=== PATIENT | female | born 1960 | race Caucasian/White ===

== ENCOUNTER 2016-12-03 08:19 | Day surgery (SDC) | payer OTHER ==
[~2016-12-03] VITALS: Ht 162.6 cm; Wt 59.7 kg
[~2016-12-03 08:19] MED LIST: CeFAZolin Inj 2 GM in IV Premix 1 EACH IV ONE; IBUP-1827 PO
[2016-12-03] MEDS ORDERED: fentaNYL-PF 50 mCg/mL 2 mL Inj ONE (08:20)
[2016-12-03] MEDS ORDERED: Propofol 10,000 mCg/mL 20 mL Inj ONE (08:20)
[2016-12-03 08:56] VITALS: BP 129/71; PULSE 79; RESP 16; O2SAT 99
[2016-12-03] MEDS: Lactated Ringer's 1,000 ML IV SCH ×2 (08:56→11:00)
--- NOTE | 2016-12-03 10:44 | PCM.HPANE ---
Patient Data Surgeon Admitting Provider: Attending Provider:Angelita Whelan DPM Primary Care Physician:Michelle Ochoa Other Provider:Aleyda Hale Anesthesia Reason for Visit Right Foot Metatarsal Deformity, Hammertoes Ht/WT & BMI Height (Feet): 5 Height (Inches): 4.00 Weight (Kilograms): 59.7 Body Mass Index 22.00 Allergies Coded Allergies: bacitracin (Verified Adverse Reaction, Unknown, 09/05/16) WELTS Past Anesthesia History Anesthesia History: Denies:: Abnormal Airway, Anesthesia Reactions, Difficult Intubation, Fam Anesthesia Reaction Diabetes History Hx Diabetes?: No MRSA MRSA: No Medications Hypertension Medication: No Home Meds Incl Beta Salvador: No Reported Medications Ibuprofen 600 Mg [id number] Mg PO QID PRN For Pain Ref 0 12/02/16 Discontinued Reported Medications [Muscle Relaxer] No Conflict CheckUnknown Dose PO BID PRN For Spasm 09/05/16 Ibuprofen 600 Mg [id number] Mg PO QID PRN For Pain Ref 0 09/05/16 oxyCODONE-Acetaminophen 5-325 mg 1 Each Tablet1-2 Tab PO Q6H PRN For Pain Ref 0 09/05/16 History History of ENT Problems?: No HEENT History: Denies:: Abnormal Airway Cataracts Difficult Intubation Dysphagia Glaucoma Hearing Problem Sinus Problem TMJ Hx of Heart Problems?: No Cardiovascular History: Denies:: AICD Abdominal Aortic Aneurism Atrial Fibrillation Cardiac Surgery Congestive Heart Failure Heart Murmur Hypertension Irregular Heartbeat Pacemaker Peripheral Vascular Rheumatic Fever Hx of Respiratory Problem?: No Respiratory History: Denies:: Asthma COPD Emphysema Oxygen Administration Pneumonia Tuberculosis Use of C-PAP Machine Hx Neurologic Problems?: No Neurological History: Denies:: Alzheimer's Disease CVA Dementia Dizziness Multiple Sclerosis Parkinson's Disease Seizures Hx of GI Problems?: No Gastrointestinal History: Denies:: Cirrhosis Diverticulitis Gastroesphageal Reflux Gastrointestinal Bleeding Heartburn Hepatitis Hiatal Hernia Liver Disease Rectal Bleeding Hx of Problems?: No Genitourinary History: Denies:: Kidney Stones Urinary Tract Infection Female Hx: Denies:: Currently Problems with Breasts? Skin History: Denies:: History Skin Disorders? Pressure Ulcers Hx Musculoskeletal Problems?: Yes Musculoskeletal History: Positive for:: Musculoskeletal Trauma (right foot current admission problem) Osteoarthritis Denies:: Back Injury Fibromyalgia Joint Replacement Myasthenia Gravis Hx of Psycho/Social Problems?: No Psycho Social History: Denies:: Anxiety Hx Depression Hx Surgeries?: Yes (multiple foot surgeries) Hx Any Other Health Problems?: Yes Other History: Denies:: Cancer Thyroid Disease History Blood Transfusions: Positive for:: Accept Blood Products? Denies:: Blood Transfusions Hx Diabetes: No Hx Alcohol Use: NoHx Substance Use: No Smoking Status: Never Smoker Stop/Bang S-Snoring: Do You Snore Loudly: No T-Tired: feel tired, fatigued: No O-Obsered: Observed not breath: No P-Blood Pressure: treated: No B- Body Mass Index > 35 kg/m2: No A- Age over 50: Yes N- Neck Large Circumference: No G- Gender Male: No ANGELINE Total Score: 1 Risk Assessment Category Category 1A: Patient has history of documented sleep apnea, and HAS NOT received any narcotic, sedative or anesthesia administration during this stay. Category 1B: Patient has history of documented sleep apnea, and HAS received any narcotic , sedative or anesthesia administration during this stay Category 2: Patient has SUSPECTED Obstructive Sleep Apnea, and HAS received any narcotic , sedative or anesthesia administration during this stay. Category 3: Patient has SUSPECTED Obstructive Sleep Apnea and HAS NOT received narcotic, sedative or anesthesia administration during this stay. Category 4: Outpatient in Procedural Areas with known sleep apnea or who screen positive for High Risk via the STOP/BANG questionnaire. Exam Exam Vital Signs Vital Signs Date Time Temp Pulse Resp B/P Pulse Ox O2 Delivery O2 Flow Rate FiO2 12/03/16 08:56 35.8 79 16 129/71 99 Room Air General Appearance: Alert, Oriented X3, Cooperative HEENT/AIRWAY: MP 2 Lungs: Clear to Auscultation Heart: Exam Unremarkable Meds/Labs/Diagnostics Admission Meds Current Medications Lactated Ringer's (Lr) 1,000 ml @ 120 mls/hr Q8H20M IV Last administered on t 08:56; Start 12/03/16 at 05:00; Stop 12/03/16 at 13:19 Plan Impression Patient chart reviewed, patient interviewed and anesthestic plan with risks, benefits, and alternatives discussed, and informed consent obtained. NPO Status: 12/02 at 2100 ASA Physical Status: ASA2 Mod Systemic Disease Anesthetic Plan: GA Bene/Risks/Altern/Consents: Yes HP Complete Prior to Induction: Yes Swapnil Chaudhry MD Dec 03, 2016 10:44
[2016-12-03] MEDS ORDERED: Lidocaine PF 1% 30 mL Inj INJ ONE (11:10)
[2016-12-03] MEDS ORDERED: Bupivacaine-MPF 0.5% 30 mL Inj INJ ONE (11:28)
[2016-12-03] MEDS ORDERED: Ondansetron 2 mg/mL 2 mL Inj IVPUSH PRN (11:40)
[2016-12-03] MEDS ORDERED: Phenylephrine 10,000 mCg/mL Inj IVPUSH PRN (11:40)
[2016-12-03] MEDS ORDERED: Dexamethasone 4 mg/mL Inj IVPUSH PRN (11:40)
[2016-12-03] MEDS ORDERED: Lactated Ringer's 1,000 ML IV SCH (11:40)
[2016-12-03] MEDS ORDERED: MetoCLOpramide 5 mg/mL 2 mL Inj IVPUSH PRN (11:40)
[2016-12-03] MEDS ORDERED: Lactated Ringer's 500 ML IV PRN (11:40)
[2016-12-03] MEDS ORDERED: fentaNYL-PF 50 mCg/mL 2 mL Inj IVPUSH PRN (11:40)
[2016-12-03] MEDS ORDERED: HYDROmorphone 1 mg/mL Inj IVPUSH PRN (11:40)
[2016-12-03] MEDS ORDERED: EPHEDrine Sulfate 50 mg/mL Inj IVPUSH PRN (11:40)
[2016-12-03 11:55] VITALS: BP 132/77; PULSE 90; RESP 12; O2SAT 97
[2016-12-03] MEDS ORDERED: HYDROcodone-APAP 5-325 mg Tablet PO PRN (11:55)
--- NOTE | 2016-12-03 12:03 | PCM.PODPO ---
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 Findings Well reduced pressure spot on the area of callus formation after excision of metatarsal heads 2 and 3. Details of Procedure The patient was identified in the preoperative holding area and brought back to the operating room. She was placed on the operating table in supine position. Sedation was initiated and the timeout protocol completed. The right foot was identified as the site of surgery and prepped and draped in usual aseptic manner. Local anesthetic was administered, making sure not to use epinephrine on this previously vascularly compromised patient. An incision was made between the second and third metatarsal head on the dorsal surface of the right foot, following a previous scar. Scar tissue was reflected off of each metatarsal heads 2 and 3. The metatarsal heads were excised using a bone saw and a #15 scalpel. Bleeding was minimal. Irrigation was performed with normal saline. The contact pressure was completely resolved. the incision was closed with Vicryl for deep soft tissue and Prolene suture for skin. A dressing consisted of sterile silk, normal saline moistened gauze, dry gauze, Kerlix and lightly wrapped 2 inch Coban. The patient was transported back to day surgery with vital signs stable and the vascular status to the right foot appearing intact. Grafts, Implants: None Complications There were no periprocedural complications identified. Condition Stable Anesthetic Administered: MAC Drains: None Catheters: None Output, Estimated Blood Loss: 2 (ml) Blood Admin during surgery: No Surgical Cast or Splint: Post-op Boot Surgical Specimen Removed: No Specimen sent to Pathology: No Post Operative Plan Weightbearing as tolerated in a postoperative shoe. Home discharge on by mouth pain medication. Follow-up next week as previously scheduled. Keep the surgical dressing clean, dry, intact until follow-up visit. Angelita Whelan DPM Dec 03, 2016 12:03
--- NOTE | 2016-12-03 12:32 | PCM.ANEP1 ---
Post Anesthesia Phase 1 PACU Phase 1 Assessment Date of Service: Dec 03, 2016 Vital Signs Vital Signs Date Time Temp Pulse Resp B/P Pulse Ox O2 Delivery O2 Flow Rate FiO2 12/03/16 11:55 37.0 90 12 132/77 97 Room Air 12/03/16 08:56 35.8 79 16 129/71 99 Room Air Anesthetic Administered: MAC Level of Alertness: Awake, talking ERAZO's with Equal Strength: Yes Pain: No Nausea or Vomiting: No Oxygen Delivery: Room Air Lungs: Clear to Auscultation Dermatome Level: Full Sensation Swapnil Chaudhry MD Dec 03, 2016 12:32
--- NOTE | 2016-12-03 12:33 | PCM.ANEP2 ---
Post Anesthesia Evaluation ASA/CMS Post Anesthesia VS in Patient's Normal Range?: Yes Resp Stable; Airway Patent?: Yes CV Function & Hydration Stable: Yes Mental Status Recovered?: Yes Pain control Satisfactory?: Yes N/V Control Satisfactory?: Yes Swapnil Chaudhry MD Dec 03, 2016 12:33
[2016-12-03] MEDS ORDERED: Lactated Ringer's 1,000 ML IV ONE (12:59)
== END 2016-12-03 23:59 | disposition home or self-care (01) ==
LOC: SAS 08:19
PROVIDERS: ATTEND Podiatrist
DX: M21.961 Unspecified acquired deformity of right lower leg (principal); Q66.89 Other specified congenital deformities of feet; M94.0 Chondrocostal junction syndrome [Tietze]
CPT/HCPCS: 28112; J0690; J2250; J2405; J2765; J3010; J7120